=== PATIENT | male | born 1950 | race Caucasian/White ===

== ENCOUNTER 2019-09-23 15:29 | Inpatient (IN) | payer MEDICARE, BC ==
[~2019-09-23] VITALS: Ht 180.3 cm; Wt 74.8 kg
[2019-09-23] MEDS ORDERED: HYDR-4384 PO (17:53)
[2019-09-23] MEDS ORDERED: ONDA4TAB5 SL (17:53)
[2019-09-23] MEDS ORDERED: ENOX40DI SQ (17:53)
[2019-09-23] MEDS ORDERED: MAGN400O6 PO (17:53)
[2019-09-23] MEDS ORDERED: MAG-55 PO (17:53)
[2019-09-23] MEDS ORDERED: PETR113P TP (17:53)
[2019-09-23] MEDS ORDERED: PANT40TA2 PO (17:53)
[2019-09-23] MEDS ORDERED: ACET-2154 PO (17:53)
[2019-09-23] MEDS ORDERED: ZOLP5TAB2 PO (17:53)
--- NOTE | 2019-09-23 18:21 | NUR ---
Admission notes: Patient admitted from [facility] via gurney assisted by 2 nutrient management specialist and at 5:40pm, Patient is AAO x 4, able to express all needs; very cooperative with care. Pt. in NO acute distress at this time. NO complains of pain at this time except when moving the right leg; denies any other pain. Vital signs taken and stable for patient; B/P-120/64, P-97, Temp.-98.3,RR-18, O2 sat at 93% in RA. Patient with no medical except current smoker. Patient asked if he needs Nicotine patch and stated he does not need one stating "I will be ok". Skin assessment done, skin is warm, dry and intact. Right upper and lower hip with original surgical dressing. Pictures taken and placed in chart. Inventory done and signed by patient. Informed whenever she brings new belongings to inform nurses. All other needs attended, safety measures in place, call light left at bed side and will continue with care.
[2019-09-23 18:29] VITALS: BP 120/64
--- NOTE | 2019-09-23 19:44 | NUR ---
RECEIVED PATIENT IN BED, ALERT AND VERBALLY RESPONSIVE. CAN MAKE NEEDS KNOWN. ON ROOM AIR, TOLERATED WELL. NO RESPIRATORY DISTRESS. NO SOB OR COUGH NOTED UPON ROUNDS. DENIES PAIN AT THIS TIME. PATIENT NOTED S/P RIGHT HIP IM NAILING. DRESSING INTACT. WILL CONTINUE TO MONITOR PATIENT. ALL NEEDS ATTENDED. WILL CONTINUE TO OBSERVE FALL AND SAFETY PRECAUTIONS.
[2019-09-23] MEDS ORDERED: Z GUARD REMEDY PASTE 57 GM TUBE TOP PRN (20:45)
[2019-09-23] MEDS ORDERED: ACETAMINOPHEN 325 MG TABLET PO PRN (20:45)
[2019-09-23] MEDS ORDERED: MAGNESIUM HYDROXIDE 30 ML LIQUID UDC PO PRN (20:45)
[2019-09-23] MEDS ORDERED: ONDANSETRON HCL 4 MG TABLET PO PRN (20:45)
[2019-09-23] MEDS ORDERED: MAG HYDROX/AL HYDROX/SIMETH 30 ML LIQUID UDC PO PRN (20:45)
[2019-09-23] MEDS ORDERED: ZOLPIDEM 5 MG TABLET PO PRN (20:45)
[2019-09-24 04:33] VITALS: BP 120/66
--- NOTE | 2019-09-24 05:53 | NUR ---
PATIENT IS IN BED, ASLEEP BUT EASILY AROUSED. CAN MAKE NEEDS KNOWN. NO RESPIRATORY DISTRESS. NO COMPLAINTS OF PAIN OR FACIAL GRIMACING AT THIS TIME. PATIENT NOTED S/P RIGHT HIP IM NAILING. DRESSING INTACT. FALL, SAFETY, AND HIP PRECAUTIONS OBSERVED. WILL CONTINUE TO MONITOR PATIENT. ALL NEEDS ATTENDED. KEPT CALL LIGHT AND PERSONAL BELONGINGS WITHIN REACH. BED WHEELS LOCKED, SIDE RAILS X 2 UP, BED AT LOW POSITION.
[2019-09-24] MEDS: PANTOPRAZOLE SODIUM 40 MG TABLET.DR PO SCH (06:31)
[2019-09-24 08:00] VITALS: BP 119/65
[2019-09-24] MEDS: ENOXAPARIN SODIUM 40 MG/0.4 ML DISP.SYRIN SQ SCH (09:26)
[2019-09-24] MEDS: HYDROCODONE/APAP 5-325MG TABLET PO PRN (10:56)
[2019-09-24 16:36] VITALS: BP 131/73
--- NOTE | 2019-09-24 19:19 | NUR ---
RECEIVED PATIENT IN BED, WITH HEAD OF BED ELEVATED AT 70 DEGREES, WATCHING TELEVISION. ALERT AND VERBALLY RESPONSIVE. CAN MAKE NEEDS KNOWN. DENIES PAIN AT THIS TIME. NO RESPIRATORY OR ACUTE DISTRESS OBSERVED. NO EPISODES OF COUGHING, CONGESTION, NAUSEA OR VOMITING. WILL CONTINUE TO MONITOR PATIENT. WILL CONTINUE TO OBSERVE FALL, SAFETY, AND HIP PRECAUTIONS. ALL NEEDS ATTENDED.
[2019-09-24 21:10] VITALS: BP 122/70
[2019-09-25 04:00] VITALS: BP 100/58
--- NOTE | 2019-09-25 05:35 | NUR ---
PATIENT IS IN BED, ASLEEP BUT EASILY AROUSED. NO RESPIRATORY DISTRESS. NO COMPLAINTS OF PAIN OR FACIAL GRIMACING AT THIS TIME. FALL AND SAFETY PRECAUTIONS OBSERVED. KEPT PATIENT WARM, DRY, AND COMFORTABLE. ALL NEEDS ATTENDED.
[2019-09-25] MEDS: PANTOPRAZOLE SODIUM 40 MG TABLET.DR PO SCH (06:39)
--- NOTE | 2019-09-25 07:23 | NUR ---
Patient noted sitting up in bed watching tv, no complaints of pain, no signs of distress at this time, call light in reach, bed locked and in lowest position, all needs met at this time
[2019-09-25 08:00] VITALS: BP 120/67
[2019-09-25] MEDS: ENOXAPARIN SODIUM 40 MG/0.4 ML DISP.SYRIN SQ SCH (08:41)
[2019-09-25] MEDS: HYDROCODONE/APAP 5-325MG TABLET PO PRN (08:50)
[2019-09-25 16:49] VITALS: BP 138/73
[2019-09-25 20:31] VITALS: BP 132/74
[2019-09-26 04:30] VITALS: BP 95/55
--- NOTE | 2019-09-26 06:21 | NUR ---
Received patient in bed. AAO x4. Not in acute distress or SOB. On room air. Able to make needs known. No complain of pain. Physical assessment done. All due medication given and well tolerated. Fall prevention observed. Safety measures maintained. Bed in low and lock position, side rails up x2 for safety. Call light and frequently used items within reach. Continue to monitor and will endorse to oncoming nurse accordingly.
[2019-09-26] MEDS: PANTOPRAZOLE SODIUM 40 MG TABLET.DR PO SCH (06:40)
--- NOTE | 2019-09-26 06:47 | NUR ---
Patient refused Pantoprazole 40 mg tab, stated "I don't have any problem and, I did not had problem before. I don't need medication". Educated patient about the medication and prevention. Explained risks and benefits and offered two times. Still refused. The medication was discarded because I already opened it for patient.
[2019-09-26 07:36] VITALS: BP 108/55
[2019-09-26] MEDS: ENOXAPARIN SODIUM 40 MG/0.4 ML DISP.SYRIN SQ SCH (09:26)
[2019-09-26] MEDS: HYDROCODONE/APAP 5-325MG TABLET PO PRN (13:19)
--- NOTE | 2019-09-26 14:35 | NUR ---
INDIVIDUALIZED PLAN OF CARE
[2019-09-26 15:48] VITALS: BP 134/61
--- NOTE | 2019-09-26 18:45 | NUR ---
Patient remains alert, oriented x 4, not in any form of distress, on room air. Complained of pain on right hip, given PRN pain medication as ordered and with noted relief. Due medications administered and tolerated well. Assisted with his needs promptly. Patient participated with therapeutic exercises and tolerated well. Surgical incision site on the right hip noted with original dressing on, clean and dry. Call light and frequently used items placed within reach. Will endorse accordingly to clay house worker nurse.
--- NOTE | 2019-09-26 19:44 | NUR ---
RECEIVED PATIENT IN BED, ALERT AND VERBALLY RESPONSIVE. CAN MAKE NEEDS KNOWN. DENIES PAIN AT THIS TIME. NO RESPIRATORY OR ACUTE DISTRESS OBSERVED. WILL CONTINUE TO MONITOR PATIENT. WILL CONTINUE TO OBSERVE FALL, SAFETY, AND HIP PRECAUTIONS. ALL NEEDS ATTENDED.
[2019-09-26 20:00] VITALS: BP 118/63
--- NOTE | 2019-09-26 21:35 | NUR ---
PATIENT NOTED WITH LOW GRADE TEMPERATURE. INITIAL ROUNDS TEMPERATURE WAS 99.7F. RECHECKED AFTER COOLING MEASURES AND ENCOURAGING FLUID INTAKE, TEMPERATURE WAS 100.2F. TYLENOL 650MG ADMINISTERED TO PATIENT ORDERED. PATIENT IS S/P RIGHT HIP NAILING ON 09/21/2019. PATIENT STILL WITH ORIGINAL DRESSING AT RIGHT HIP. NO DRAINAGE NOTED. NO SWELLING OR REDNESS SURROUNDING DRESSING OBSERVED. PATIENT REPORTS 3/[address] A[address] PA[address] RIGHT HIP[address] SUAREZ MADE AWARE OF PATIENT'S TEMPERATURE WITH ORDERS FOR LABS, CHEST XRAY, AND URINE CULTURE. ORDERS NOTED. PATIENT MADE AWARE OF ORDERS AND AGREES WITH PLAN OF CARE.
--- NOTE | 2019-09-26 22:30 | NUR ---
URINE SPECIMEN COLLECTED AND TAKEN TO LAB ORDERED. RECHECKED PATIENT'S TEMPERATURE IS 98.4F. WILL CONTINUE TO MONITOR PATIENT.
[2019-09-26 23:00] LABS: *BLOOD, URINE NEGATIVE (NEGATIVE); *COLOR,URINE YELLOW (YELLOW); *KETONES,URINE NEGATIVE (NEGATIVE); *UROBILINOGEN,URINE >=8.0 E.U./dl (NORMAL); LEUKOCYTE ESTERASE ,URINE NEGATIVE (NEGATIVE); NITRITE, URINE NEGATIVE (NEGATIVE); UGLUCOSE NEGATIVE (NEGATIVE)
[2019-09-26 23:10] LABS: *BILIRUBIN,URIN 1+ (NEGATIVE); *CLARITY,URINE HAZY (CLEAR)
[2019-09-26 23:18] LABS: BACTERIA,URINE NONE SEEN /HPF (NONE SEEN); RBC,URINE 0-3 /HPF (0-3); SQUAMOUS EPITHELIAL CELL,UR FEW /HPF (NONE SEEN); WBC,URINE 0-3 /HPF (0-3)
[2019-09-27 05:00] VITALS: BP 119/57
--- NOTE | 2019-09-27 06:31 | NUR ---
PATIENT IS IN BED, ALERT AND VERBALLY RESPONSIVE. NO FURTHER EPISODE OF ELEVATED TEMPERATURE. NO CHANGES IN MENTATION. ABLE TO MAKE NEEDS KNOWN. NO RESPIRATORY DISTRESS. NO SOB, COUGH, OR CONGESTION. FALL AND SAFETY PRECAUTIONS OBSERVED. ALL NEEDS ATTENDED.
[2019-09-27] MEDS: PANTOPRAZOLE SODIUM 40 MG TABLET.DR PO SCH (06:47)
[2019-09-27 07:05] LABS: BASOPHILS % (AUTO) 0.3 % (0.0-2.0); EOSINOPHILS # (AUTO) 0.4 K/uL (0.0-0.7); HEMATOCRIT 28.6 % (36.7-47.1); HEMOGLOBIN 9.7 g/dL (12.5-16.3); LYMPHOCYTES # (AUTO) 1.4 K/uL (20.0-40.0); LYMPHOCYTES % (AUTO) 15.8 % (20.5-51.5); MEAN CORPUSCULAR HEMOGLOBIN 31.2 uug (23.8-33.4); MEAN CORPUSCULAR HGB CONC 34 g/dL (32.5-36.3); MEAN CORPUSCULAR VOLUME 92.2 fL (73.0-96.2); MONOCYTES % (AUTO) 11.6 % (0.0-11.0); NEUTROPHILS # (AUTO) 5.8 K/uL (1.8-8.9); NEUTROPHILS % (AUTO) 67.3 % (38.5-71.5); PLATELET COUNT (AUTO) 276 K/uL (152-348); WHITE BLOOD COUNT (AUTO) 8.6 K/uL (3.6-10.2)
[2019-09-27 07:29] LABS: THYROID STIMULATING HORMONE 1.414 mIU/mL (0.358-3.740)
[2019-09-27 07:51] LABS: BILIRUBIN,TOTAL 0.9 mg/dL (0.2-1.0); CREATININE 0.9 mg/dL (0.6-1.3); PHOSPHOROUS 2.7 mg/dL (2.5-4.9); POTASSIUM 3.7 mmol/L (3.5-5.1); TOTAL PROTEIN, SERUM 5.8 g/dL (6.4-8.2)
[2019-09-27 08:00] VITALS: BP 113/62
[2019-09-27] MEDS: ENOXAPARIN SODIUM 40 MG/0.4 ML DISP.SYRIN SQ SCH (08:38)
--- NOTE | 2019-09-27 10:00 | NUR ---
Received pt. in bed, A/Ox4 able to make his needs known. In no acute distress, afebrile, denies SOB or CP. All due AM medication given as ordered. No new skin condition noted, skin care rendered, RT hip original dressing C/D/I. No s/sx of bleeding, currently on Lovenox SQ. Kept pt. clean and dry. All pt. needs attended and met promptly. Safety measures in place. Call light and all frequently used items within pt. reach. Addendum: 09/27/19 at 1426 by KIM ROTH RN Obtained XR of RT hip order from for f/u appt with Dr. Stinson on 10/04/2019. Orders carried out accordingly. Pt. made aware and amenable.
[2019-09-27 17:16] VITALS: BP 126/71
--- NOTE | 2019-09-27 17:59 | NUR ---
EOS: No significant acute changes during this shift. Pt. participated with PT/OT, ambulated with FWW + 1 person assist. All pt. needs attended and met promptly. No new skin condition, remain intact. RT hip dressing C/D/I. Pt. with schedule appointment with Dr. Stinson on 10/04/2019 per CM. Safety measures in place. Call light and all frequently used items within pt. reach. Will endorse to oncoming shift.
--- NOTE | 2019-09-27 19:52 | NUR ---
RECEIVED PATIENT IN BED. ALERT AND VERBALLY RESPONSIVE. AFEBRILE. ABLE TO MAKE NEEDS KNOWN. NO RESPIRATORY DISTRESS. NO COMPLAINTS OF PAIN AT THIS TIME. PATIENT S/P RIGHT HIP NAILING. ORIGINAL DRESSING INTACT WITH NO DRAINAGE OBSERVED. WILL CONTINUE TO MONITOR PATIENT. FALL, SAFETY, AND HIP PRECAUTIONS OBSERVED. ALL NEEDS ATTENDED. CALL LIGHT WITHIN REACH, BED WHEELS LOCKED, BED AT LOW POSITION.
[2019-09-27 20:03] VITALS: BP 127/63
[2019-09-28 04:52] VITALS: BP 106/58
--- NOTE | 2019-09-28 05:45 | NUR ---
PATIENT IS ASLEEP, BUT EASILY AROUSABLE. NO FACIAL GRIMACING NOTED. NO RESPIRATORY DISTRESS OBSERVED. RESPIRATIONS EVEN AND UNLABORED. PATIENT REMAINED AFEBRILE THROUGH THE NIGHT. WILL CONTINUE TO MONITOR PATIENT. KEPT PATIENT WARM, DRY, AND COMFORTABLE. PATIENT SLEPT THROUGH THE NIGHT WITHOUT DIFFICULTY. FALL AND SAFETY PRECAUTIONS OBSERVED. ALL NEEDS ANTICIPATED AND ATTENDED.
[2019-09-28] MEDS: PANTOPRAZOLE SODIUM 40 MG TABLET.DR PO SCH (06:35)
[2019-09-28 08:13] VITALS: BP 122/68
[2019-09-28] MEDS: ENOXAPARIN SODIUM 40 MG/0.4 ML DISP.SYRIN SQ SCH (08:49)
[2019-09-28] MEDS: HYDROCODONE/APAP 5-325MG TABLET PO PRN (08:50)
[2019-09-28 16:00] VITALS: BP 138/82
--- NOTE | 2019-09-28 16:37 | NUR ---
PATIENT CONTINUE THERAPY FOR AMBULATION, INCREASE STRENGHT AND ENDURANCE. NOT IN DISTRESS. CONTINUE PAIN MANAGEMENT PRIOR TO THERAPY AND IF NEEDED. TOLERATED WELL. WILL CONTINUE MONITOR
--- NOTE | 2019-09-28 19:45 | NUR ---
PATIENT ALERT ORIENTED, NO COMPLAIN OF PAIN AT THIS TIME. CALL LIGHT WITHIN REACH. PATIENT WAS REMINDED TO SHIFT BUTTOCKS WEIGHT TO PREVENT PRESSURE SORES, CALL LIGHT WITHIN REACH.
[2019-09-28 20:59] VITALS: BP 129/72
[2019-09-29 05:40] VITALS: BP 126/70
--- NOTE | 2019-09-29 06:32 | NUR ---
PATIENT ALERT ORIENTED, NO COMPLAIN OF PAIN AT THIS TIME. PATIENT SLEPT MOST OF THE NIGHT, CALL LIGHT WITHIN REACH.
[2019-09-29] MEDS: PANTOPRAZOLE SODIUM 40 MG TABLET.DR PO SCH (06:50)
[2019-09-29] MEDS: HYDROCODONE/APAP 5-325MG TABLET PO PRN (07:51)
[2019-09-29] MEDS: ENOXAPARIN SODIUM 40 MG/0.4 ML DISP.SYRIN SQ SCH (08:17)
[2019-09-29 08:34] VITALS: BP 132/66
[2019-09-29 16:12] VITALS: BP 135/76
--- NOTE | 2019-09-29 16:12 | NUR ---
INTERDISCIPLINARY TEAM CONFERENCE
--- NOTE | 2019-09-29 18:15 | NUR ---
PATIENT CONTINUE THERAPY FOR ADL ACTIVITIES, INCREASE STRENGHT AND ENDURANCE. CONTINUE PAIN MANAGEMENT PRIOR THERAPY WITH GOOD EFFECT. WILL CONTINUE MONITOR
[2019-09-29 20:39] VITALS: BP 119/65
--- NOTE | 2019-09-29 21:11 | NUR ---
In bed resting upon initial rounds. Pleasant and cooperative. VSS. Needs attended. Right hip dressing intact. Voiding in urinal. Denies any pain nor any discomfort. Will monitor patient.
[2019-09-30 05:02] VITALS: BP 124/60
[2019-09-30] MEDS: PANTOPRAZOLE SODIUM 40 MG TABLET.DR PO SCH (06:32)
--- NOTE | 2019-09-30 07:00 | NUR ---
End of shift nurse: slept well most of the shift. VSS. No acute distress noted. Kept comfortable. Voiding freely.
--- NOTE | 2019-09-30 07:30 | NUR ---
Received patient in bed awake, Pt. is AAO x 4. No acute distress noted. Greeted patient. No C/O pain on right hip. Pt. stated feeling much better day after day. Original dressing intact and dry. Needs attended and will continue with care.
[2019-09-30 08:00] VITALS: BP 116/64
[2019-09-30] MEDS: ENOXAPARIN SODIUM 40 MG/0.4 ML DISP.SYRIN SQ SCH (08:30)
[2019-09-30] MEDS: HYDROCODONE/APAP 5-325MG TABLET PO PRN (08:42)
[2019-09-30 16:04] VITALS: BP 120/61
--- NOTE | 2019-09-30 17:39 | NUR ---
Patient is AAO X 4, able to express needs verbally. Denies any pain at this time. No SOB or any acute distress noted. Vital signs taken and stable for patient. Pt. on Lovenax injection daily. No s/sx of bleeding noted on injection site. Pt. on PT/OT therapy. [place] 5/325mg 1 tab administered before PT/OT for pain level of 6/10 when moving and effective. Patient with a stand by assist for most care, Pt. able to ambulate with a walker. Dressing on Right hip intact and dry. No c/o pain at this time. Needs attended and met, safety measures in place, call light left at bed side and will continue with care.
[2019-09-30 19:56] VITALS: BP 112/61
--- NOTE | 2019-09-30 20:21 | NUR ---
Received pt resting in bed and watching tv. AAO x4. No acute distress noted. Denies pain/ discomfort. Safety measures maintained. Call light and personal items within reach. Will continue to monitor.
[2019-10-01 04:55] VITALS: BP 114/65
[2019-10-01] MEDS: PANTOPRAZOLE SODIUM 40 MG TABLET.DR PO SCH (07:12)
--- NOTE | 2019-10-01 07:44 | NUR ---
Received patient in bed, Pt. is AAO x 4. In NO acute distress, easy to arouse. NO c/o pain at this time. Safety measures in place, call light left within easy reach and will continue with care.
[2019-10-01 08:00] VITALS: BP 110/62
[2019-10-01] MEDS: ENOXAPARIN SODIUM 40 MG/0.4 ML DISP.SYRIN SQ SCH (08:50)
[2019-10-01] MEDS: HYDROCODONE/APAP 5-325MG TABLET PO PRN (09:15)
[2019-10-01 16:58] VITALS: BP 118/66
--- NOTE | 2019-10-01 18:10 | NUR ---
Patient in stable condition, vital signs stable for patient. No complains of pain at this time. No new change of condition noted. Patient with a stand by assist. On continuos PT/OT therapy. Safety measures in place, needs attended and met, call light left at bed side and will continue with care.
[2019-10-01 19:51] VITALS: BP 114/58
--- NOTE | 2019-10-01 20:33 | NUR ---
Received pt resting in bed and watching tv. AAO x4. No acute distress noted. Denies pain/ discomfort. VSS. Safety measures maintained. Call light and personal items within reach. Will continue to monitor.
[2019-10-02 06:08] VITALS: BP 119/49
[2019-10-02] MEDS: PANTOPRAZOLE SODIUM 40 MG TABLET.DR PO SCH (06:31)
--- NOTE | 2019-10-02 07:53 | NUR ---
Patient noted ambulating with therapist, complaints of mild pain, no signs of distress noted, call light in reach, bed locked and in lowest position, all needs met
[2019-10-02 08:00] VITALS: BP 123/69
[2019-10-02] MEDS: HYDROCODONE/APAP 5-325MG TABLET PO PRN (08:07)
[2019-10-02] MEDS: ENOXAPARIN SODIUM 40 MG/0.4 ML DISP.SYRIN SQ SCH (08:08)
[2019-10-02 16:57] VITALS: BP 135/75
--- NOTE | 2019-10-02 19:40 | NUR ---
Awake, in bed, watching TV at this time. Denies any pain/discomforts. Safety measures and fall precaution maintained. Continue care as planned.
[2019-10-02 20:00] VITALS: BP 104/56
[2019-10-03 04:00] VITALS: BP 106/69
--- NOTE | 2019-10-03 06:11 | NUR ---
Shift End Report: VS stable. No complaint presented all night. Slept good. All needs attended and met. No significant event reported all night. Continue current rehab plan of care.
[2019-10-03] MEDS: PANTOPRAZOLE SODIUM 40 MG TABLET.DR PO SCH (06:18)
--- NOTE | 2019-10-03 07:45 | NUR ---
Received patient awake, alert, oriented x 4 not in any distress on room air, sitting on the wheelchair. Patient denies any pain or discomfort at this time. Call light and frequently used items placed within reach.
[2019-10-03] MEDS: ENOXAPARIN SODIUM 40 MG/0.4 ML DISP.SYRIN SQ SCH (08:24)
[2019-10-03] MEDS: HYDROCODONE/APAP 5-325MG TABLET PO PRN (08:28)
[2019-10-03 09:19] VITALS: BP 133/73
--- NOTE | 2019-10-03 18:11 | NUR ---
Patient remained stable during the shift. He complained of pain on right hip 01/09, given PRN pain medication with noted relief. Patient actively participated with PT and OT. Needs attended to promptly and met. Call light and frequently used items placed within reach. Will endorse accordingly to mini shifter nurse.
--- NOTE | 2019-10-03 19:40 | NUR ---
Awake, in bed, watching basketball, not in distress. denies any pain/discomforts at this time. Safety measure and fall precaution maintained. Continue care as planned.
[2019-10-03 20:28] VITALS: BP 130/63
[2019-10-04 04:00] VITALS: BP 103/61
[2019-10-04] MEDS: PANTOPRAZOLE SODIUM 40 MG TABLET.DR PO SCH (06:00)
--- NOTE | 2019-10-04 06:41 | NUR ---
Shift End report: Vs stable. No complaint presented. Slept good. All needs attended and met. No significant event reported all night. Continue current rehab plan of care.
--- NOTE | 2019-10-04 07:41 | NUR ---
PATIENT IS ALERT, ORIENTED X4, NO SOB,R YUVAL EVEN NONLABORED, VERBALLY RESPONSIVE, NO DISTRESS NOTED
[2019-10-04 07:49] VITALS: BP 136/88
--- NOTE | 2019-10-04 12:50 | NUR ---
PATIENT REFUSES SCD PUMPS, RISKS AND BENEFITS EXPLAINED, HOWEVER PATIENT IS AMBULATORY
[2019-10-04 15:16] VITALS: BP 127/76
--- NOTE | 2019-10-04 19:40 | NUR ---
Awake, watching TV at this time, able to turn and reposition self independently. Denies any pain/discomforts at this time. Continue care as planned.
[2019-10-04 21:57] VITALS: BP 115/59
--- NOTE | 2019-10-05 05:50 | NUR ---
Shift End Report: VS stable. Slept good. No complaint presented all night. All needs attended and met. No significant event reported. Continue current rehab plan of care.
[2019-10-05] MEDS: PANTOPRAZOLE SODIUM 40 MG TABLET.DR PO SCH (06:09)
[2019-10-05 07:52] VITALS: BP 120/66
--- NOTE | 2019-10-05 09:54 | NUR ---
Patient is independent with steady gait. Patient received in the bathroom doing morning daily care. Patient alert and oriented times four. Patient is not in distressed. No s/s of SOB, O2 saturation at 99%. Patient is stable, no complaints. Patient safety and items needed within reach. Will continue to monitor patient.
[2019-10-05 14:43] VITALS: BP 116/60
--- NOTE | 2019-10-05 18:35 | NUR ---
END OF SHIFT REPORT: Patient remained stable throughout shift. No complaints, no distress. Patient is stable and continued to watch TV. . patient safety and items needed within patient reach. Vital signs are stable. All needs attended and met. No significant event reported. Continue current rehab plan of care. Endorse report to next shift
--- NOTE | 2019-10-05 20:49 | NUR ---
Received pt resting in bed and watching tv. AAO x4. No acute distress noted. Denies pain/ discomfort. Pt to be discharge tomorrow. Safety measures maintained. Call light and personal items within reach. Will continue to monitor.
[2019-10-05 21:28] VITALS: BP 123/72
[2019-10-06 05:20] VITALS: BP 122/62
[2019-10-06] MEDS: PANTOPRAZOLE SODIUM 40 MG TABLET.DR PO SCH (06:32)
[2019-10-06 08:24] VITALS: BP 111/68
--- NOTE | 2019-10-06 13:00 | NUR ---
PATIENT IS ALERT, ORIENTED X4, VERBALLY RESPONSIVE, NO SOB, RESP EVEN NONLABORED, SKIN WARM AND DRY TO TOUCH, NO SKIN ISSUES, INCISION SITE IS CLEAN AND DRY, DISCHARGE INSTRUCTIONS ARE GIVEN TO PATIENT, VERBALIZED UNDERSTANDING OF IT, BELONGINGS ARE ACCOUNTED AND SIGNED, PATIENT SAFELY TRANSFERRED TO CAR.
--- NOTE | 2019-10-06 13:00 | NUR ---
PATIENT DISCHARGED HOME WITH PRIVATE CAR WITH HIS ,
== END 2019-10-06 13:00 | disposition home health service (06) | DRG 560 ==
PROVIDERS: ADMIT Physical Medicine & Rehabilitation Pain Medicine; ATTEND Physical Medicine & Rehabilitation Pain Medicine
DX: S72.141D Displaced intertrochanteric fracture of right femur, subsequent encounter for closed fracture with routine healing (principal); D68.59 Other primary thrombophilia; S72.21XD Displaced subtrochanteric fracture of right femur, subsequent encounter for closed fracture with routine healing; W10.9XXD Fall (on) (from) unspecified stairs and steps, subsequent encounter; F17.200 Nicotine dependence, unspecified, uncomplicated; D64.9 Anemia, unspecified; D63.8 Anemia in other chronic diseases classified elsewhere
CPT/HCPCS: 36415; 71045; 73502; 82652; 83605; 83735; 84100; 84443; 85025; 87077; 87086; J1650